=== PATIENT | female | born 1985 | race African-American/Black ===

== ENCOUNTER 2017-06-07 17:06 | Emergency (ER) | payer OTHER ==
[~2017-06-07] VITALS: Ht 172.7 cm; Wt 60.0 kg
[~2017-06-07 17:06] MED LIST: DEPO150I IM
[2017-06-07 17:36] VITALS: BP 125/88; PULSE 81; RESP 20; TEMP 98.9; O2SAT 100
--- NOTE | 2017-06-07 17:57 | PD ---
HPI Chief Complaint: Anxiety Time Seen by Provider: 17:50 Travel History International Travel<30 days: No Contact w/Intl Traveler<30days: No Traveled to known affect area: No History of Present Illness HPI Patient comes emergency department complaining of her anxiety not being well controlled. Patient states that she normally is able to keep it controlled by breathing into a brown paper bag counting backwards from 10. Patient states she is currently in the middle of a divorce and her anxiety has not been well controlled the past 2 days. Patient does not want see her primary care doctor secondary to her is seeing the same physician. Patient denies any pain or radiation of pain. Symptoms are mild. Patient reports when the anxiety flares up she feels short of breath and has tingling in her lips and fingers. Denies any headaches, chest pain, fevers, homicidal/suicidal ideations, or . Reports symptoms come and go. PFSH Past Medical History Anxiety: Yes Depression: Yes Diabetes: Yes ("BORDERLINE") Patient Takes Glucophage: No Diminished Hearing: No Immunizations Current: Yes ?: Not LMP: FEW DAYS AGO : 1 Para: 1 Miscarriage: 0 : 0 Social History Alcohol Use: No Tobacco Use: Yes (03/28 PPD) Substance Use: No ( ) Allergies-Medications (Allergen,Severity, Reaction): Coded Allergies: penicillin G (Unverified Allergy, Severe, 06/07/17) Reported Meds & Prescriptions Reported Meds & Active Scripts Active Vistaril (Hydroxyzine Pamoate) 25 Mg Cap 25 Mg PO Q6H PRN Reported Depo-Provera Inj (Medroxyprogesterone Inj) 150 Mg/Ml Inj 150 Mg IM Q90D Review of Systems Except as stated in HPI: all other systems reviewed are Neg Physical Exam Narrative GENERAL: Well-developed, well nourished, in no acute distress, and non-ill appearing. SKIN: Focused skin assessment warm and dry. HEAD: Atraumatic. Normocephalic. EYES: Pupils equal and round. EOMI. No scleral icterus. No injection or drainage. ENT: No nasal bleeding or discharge. Mucous membranes pink and moist. NECK: Trachea midline. Supple. No nuclear rigidity. CARDIOVASCULAR: Regular rate and rhythm. No murmur appreciated. RESPIRATORY: No accessory muscle use. No respiratory distress. Clear to auscultation. Breath sounds equal bilaterally. MUSCULOSKELETAL: No obvious deformities. No clubbing. No cyanosis. No edema. Full range of motion. NEUROLOGICAL: Awake and alert. No obvious cranial nerve deficits. Motor grossly within normal limits. Normal speech. PSYCHIATRIC: Appropriate mood and affect; insight and judgment normal. Data Data Last Documented VS Vital Signs Date Time Temp Pulse Resp B/P (MAP) Pulse Ox O2 Delivery O2 Flow Rate FiO2 06/07/17 17:36 98.9 81 20 125/88 (100) 100 Orders Orders Hydroxyzine Pamoate (Vistaril) (06/07/17 18:00) Ed Discharge Order (06/07/17 18:25) [facility] Medical Decision Making Medical Screen Exam Complete: Yes Emergency Medical Condition: Yes Differential Diagnosis Anxiety, depression, stress, acute psychosis Narrative Course Patient in no obvious distress upon re-evaluation. Patient was asked if they wanted to speak to my attending, which the patient did not wish to do at this time. Any questions/concerns in reference to patient diagnosis/condition discussed and clarified prior to patient's discharge. Reinforced sheer importance of close follow up with patient's primary physician or primary care clinic. Instructed patient to return to ED immediately, if symptoms return/ worsen. Patient showed understanding of above instructions. Further instructions and recommendations were detailed in discharge paperwork. Patient ambulated without difficulty out of ED at discharge. Diagnosis Primary Impression: Stress disorder, acute Referrals: [facility] Patient Instructions: Anxiety (ED), General Instructions, Stress (DC) Additional Instructions: Follow-up with your primary care physician and/or Mauro Duran in 1-3 days for reevaluation. Take all medication as prescribed. Exercise to reduce stress. Return to the emergency department if symptoms get worse. Med/Other Pt SpecificInfo: Prescription(s) given Scripts Hydroxyzine Pamoate (Vistaril) 25 Mg Cap 25 MG PO Q6H Y for ANXIETY, #12 CAP 0 Refills Prov: Dara Goode DO 06/07/17 Disposition: 01 DISCHARGE HOME Condition: Stable [place] Jun 07, 2017 17:57
[2017-06-07] MEDS ORDERED: hydrOXYzine PAMOATE 25 MG CAP PO ONE (18:00)
[2017-06-07] MEDS ORDERED: VIST25CA PO (18:11)
== END 2017-06-07 18:43 | disposition home or self-care (01) ==
LOC: NEPK 17:06
DX: F43.9 Reaction to severe stress, unspecified (principal); F32.9 Major depressive disorder, single episode, unspecified; E11.9 Type 2 diabetes mellitus without complications; F17.200 Nicotine dependence, unspecified, uncomplicated; Z88.0 Allergy status to penicillin; Z63.5 Disruption of family by separation and divorce; Z79.3 Long term (current) use of hormonal contraceptives
CPT/HCPCS: 99283; Q0177